=== PATIENT | female | born 1940 | race Two or more races ===

== ENCOUNTER 2022-09-21 14:32 | Emergency (ER) | payer OTHER ==
[~2022-09-21] VITALS: Ht 165.1 cm; Wt 91.0 kg
[2022-09-21 14:39] VITALS: BP 109/63
[2022-09-21] MEDS ORDERED: ACETAMINOPHEN WITH CODEINE 300/30MG TABLET PO ONE (15:45)
== END 2022-09-21 19:35 | disposition home or self-care (01) ==
LOC: EDBD 14:32 → ER 14:32
DX: S82.892A Other fracture of left lower leg, initial encounter for closed fracture (principal); M20.12 Hallux valgus (acquired), left foot; G89.29 Other chronic pain; M25.562 Pain in left knee; M25.561 Pain in right knee; R26.89 Other abnormalities of gait and mobility; X50.1XXA Overexertion from prolonged static or awkward postures, initial encounter; Y93.89 Activity, other specified; Y92.481 Parking lot as the place of occurrence of the external cause; I11.0 Hypertensive heart disease with heart failure; I50.9 Heart failure, unspecified; E11.9 Type 2 diabetes mellitus without complications
CPT/HCPCS: 29515; 73610; 73630; 99284